=== PATIENT | female | born 1985 | race Caucasian/White ===

== ENCOUNTER 2017-10-27 11:55 | Day surgery (SDC) | payer MEDICAID, SELFPAY ==
--- NOTE | 2017-10-27 | PATH_ITS ---
[facility] Accession Number: [id number] . 01 Material submitted: . PART A: DUODENAL PART B: ANTRAL PART C: GE JUNCTION PART D: ILEUM PART E: RANDOM COLON . 02 Diagnosis: A. Duodenum, Biopsy: Duodenal mucosa with no diagnostic abnormality. Negative for active inflammation, features of sprue, dysplasia or malignancy. . B. Antrum, Biopsies: Gastric antral mucosa with no diagnostic abnormality. No evidence of Helicobacter organisms on H/E stain. Negative for intestinal metaplasia, dysplasia or malignancy. . C. Gastroesophageal Junction, Biopsy: Squamocolumnar junctional mucosa with no diagnostic abnormality. Negative for specialized intestinal metaplasia, dysplasia or malignancy. . D. Ileum, Biopsy: Ileal mucosa with no diagnostic abnormality. Negative for active inflammation, granulomata, dysplasia or malignancy. . E. Random Colon, Biopsies: Colonic mucosa with no diagnostic abnormality. Negative for active of microscopic colitis. Negative for granulomata, dysplasia or malignancy. [facility]/10/28/2017 . 02 Electronically signed: . Kan Hoyos MD, PhD, Pathologist NPI- [id number] . 01 Gross description: . Received are five formalin-filled containers, each labeled with the patient's name: . A. In a container labeled duodenal, the specimen consists of a 0.2 cm portion of tissue, entirely submitted in cassette A. B. In a container labeled antral, the specimen consists of two less than 0.1 cm to 0.2 cm portions of tissue, entirely submitted in cassette B. C. In a container labeled GE junction, the specimen consists of a 0.2 cm portion of tissue, entirely submitted in cassette C. D. In a container labeled ileum, the specimen consists of a 0.2 cm portion of tissue, entirely submitted in cassette D. E. In a container labeled random colon, the specimen consists of multiple less than 0.1 cm to 0.4 cm portions of tissue, which are filtered, wrapped, and entirely submitted in cassette E. ([id number]) /FRR . 02 Pathologist provided ICD-10: R10.13, R19.7 . 02 CPT . 253462, 703836, 563324, 333512, 280097 Performed at: 01 [facility] [address] [id number] MD Eldon Chery MD Phone: [phone] Performed at: 02 [facility] [address] [place], [place] [id number] MD Andrei Sainz MD Phone: [phone]
[2017-10-27 12:23] VITALS: BP 119/81; PULSE 78; RESP 15; TEMP 36; O2SAT 98; BMI 30.4
[2017-10-27] MEDS: SODIUM CHLORIDE 0.9% 1,000 ML 200 ML IV (12:23)
--- NOTE | 2017-10-27 13:44 | PM.PREOP ---
Pre-operative Note Interval Note Pre-op Check: History & Physical Reviewed by Physician ASA Class (for procedural sedation): I
[2017-10-27] MEDS: LIDOCAINE 4% SOLN 50 ML 20 ML TOP (13:55)
[2017-10-27] MEDS: TETRACAINE/BENZOCAINE/BUTAMBEN (CETACAINE) BOTTLE 1 SPRAY TOP (13:56)
--- NOTE | 2017-10-27 14:00 | PM.OP.1 ---
Operative Date/Time/Diagnoses Date of procedure: 10/27/17 Time of procedure: 14:00 Pre-op diagnosis: Abdominal pain Chronic diarrhea Post-op diagnosis: same Procedure & Clinicians Procedure: Esophagogastroduodenoscopy with biopsies and colonoscopy with biopsies Same procedure as scheduled: Yes Indications: Abdominal pain and chronic diarrhea Surgeon: Johanny Whitman Click Yes if Unassisted: Yes Anesthesia Type: Sedation Operative Notes Procedure in detail: After obtaining informed consent, the patient was brought to the GI suite and placed in the left lateral decubitus position on the examination table. After placement of appropriate monitors, the patient was given incremental doses of Versed and Fentanyl until an appropriate level of sedation was achieved. A time out was held per SCOAP protocol. We began with EGD. A bite block was gently placed between the patient's teeth. The endoscope was lubricated and then passed into the patient's posterior oropharynx. The esophagus was cannulated under direct vision and the scope was passed to the second portion of the duodenum without difficulty. The scope was then withdrawn with careful examination of all areas of the upper GI tract and mucosa. In the stomach, the instrument was retroflexed and the GE junction examined. The scope was straightened and the procedure continued with examination of the remainder of the upper GI tract. Findings are noted above. Air was aspirated from the stomach and the endoscope gently removed from the esophagus. The examination table was turned and we continued with the colonoscopy. A digital rectal examination was performed and did not reveal any masses or obstructing lesions. The colonoscope was gently passed into the patient's anus and the entire colon navigated to the level of the cecum with minimal difficulty. Once in the cecum, the scope was withdrawn being sure to go before and beyond all mucosal folds and prominences and get an excellent examination. The findings are noted above. At the level of the rectal vault, the scope was retroflexed and the internal anal canal was examined. The scope was straightened and air aspirated from the colon. The instrument was removed from the patient's body and the procedure was concluded. The patient was allowed to awaken from sedation without difficulty and taken to the post-anesthesia care unit in good condition.
[2017-10-27 14:22] VITALS: BP 122/80; PULSE 67; RESP 16; TEMP 36.2; O2SAT 97
[2017-10-27 14:27] VITALS: BP 108/65; PULSE 65; PULSE 67; RESP 12; O2SAT 95
[2017-10-27] MEDS: MIDAZOLAM 5 MG/5 ML VIAL IV (14:31)
[2017-10-27 14:32] VITALS: BP 100/67; PULSE 61; RESP 12; TEMP 36.6; O2SAT 95
[2017-10-27] MEDS: fentaNYL 250 MCG/5 ML INJ IV (14:32)
[2017-10-27 14:35] VITALS: BP 98/61; PULSE 61; RESP 14; TEMP 36.4; O2SAT 97
[2017-10-27 14:53] VITALS: BP 100/71; PULSE 66; RESP 14; TEMP 36.2; O2SAT 96
[2017-10-27 17:42] LABS: Clostridium Difficile Tox PCR Negative for C. diff
--- NOTE | 2017-10-28 15:26 | PM.OP.1 ---
Operative Date/Time/Diagnoses Date of procedure: 10/27/17 Time of procedure: 14:26 Pre-op diagnosis: Abdominal pain and chronic diarrhea Post-op diagnosis: same Procedure & Clinicians Procedure: EGD with biopsies and Colonoscopy Same procedure as scheduled: Yes Indications: Chronic diarrhea and abdominal pain Surgeon: Johanny Whitman Anesthesia Type: Sedation (Versed 14 mg; Fentanyl 450 mcg) Operative Notes Findings: 1. Mild duodenitis 2. No evidence of gastritis 3. Excellent prep 4. No polyps or mass lesions 5. No AV malformations 6. Normal mucosa throughout the colon 7. Minimal evidence of diverticulosis 8. Grade 1-2 internal hemorrhoids
== END 2017-10-27 14:58 | disposition home or self-care (01) ==
PROVIDERS: PCP Family Medicine; Visit Provider Surgery
PROC: 0DJ08ZZ Inspection of Upper Intestinal Tract, Via Natural or Artificial Opening Endoscopic (ICD-10-PCS; CPT 43235; principal; 2017-10-27 13:00)
PROC: 0DJD8ZZ Inspection of Lower Intestinal Tract, Via Natural or Artificial Opening Endoscopic (ICD-10-PCS; CPT 45378; 2017-10-27 13:00)
DX: R10.9 Unspecified abdominal pain (principal); Z87.891 Personal history of nicotine dependence; F41.9 Anxiety disorder, unspecified; F32.9 Major depressive disorder, single episode, unspecified; F43.11 Post-traumatic stress disorder, acute; K29.80 Duodenitis without bleeding
CPT/HCPCS: 43239; 45380; 87015; 87045; 87177; 87427; 87493; 87899; 88305; J2250; J3010

== ENCOUNTER 2018-01-15 10:14 | Emergency (ER) | payer MEDICAID, SELFPAY ==
[2018-01-15 10:16] VITALS: BP 134/86; PULSE 92; RESP 16; TEMP 36.5; O2SAT 100
[2018-01-15 11:12] LABS: Add Manual Diff / Slide Review NO; Basophils Percent Auto 0.5 % (0-2); Eosinophils Percent Auto 0.1 % (2-4); Hematocrit 40.5 % (36-46); Hemoglobin 13.9 g/dL (12.0-16.0); Lymphocytes Percent Auto 8.2 % (25-40); Mean Corpuscular HGB Conc 34.3 % (30-36); Mean Corpuscular Hemoglobin 28.7 PG (26-34); Mean Corpuscular Volume 83.6 fL (80-100); Monocytes Percent Auto 2.4 % (3-14); Neutrophils Absolute Auto 7000 /uL (3000-5900); Neutrophils Percent Auto 88.8 % (50-75); Platelet Count 229 X10^3/uL (150-400); Red Blood Cell Count 4.84 X10^6/uL (4.0-5.2); Red Cell Distribution Width 13.5 % (11.6-14.8); White Blood Cell Count 7.9 X10^3/uL (4.5-11.0)
[2018-01-15] MEDS: KETOROLAC 60 MG/2 ML VIAL 30 MG IV (11:19)
[2018-01-15] MEDS: ONDANSETRON 4 MG/2 ML INJ IV ×2 (11:19→12:38)
[2018-01-15 11:20] VITALS: PULSE 75; RESP 15; O2SAT 100
[2018-01-15] MEDS: SODIUM CHLORIDE 0.9% 1,000 ML 1000 ML IV (11:20)
[2018-01-15 11:26] LABS: Alanine Aminotransferase 19 IU/L (9-52); Albumin 4.4 g/dL (3.5-5.0); Albumin Globulin Ratio 1.6 (1.0-2.8); Alkaline Phosphatase 66 U/L (38-126); Aspartate Aminotransferase 19 IU/L (14-36); Bilirubin Total 0.9 mg/dL (0.2-1.3); Blood Urea Nitrogen 7 mg/dL (7-17); Calcium 9.1 mg/dL (8.4-10.2); Carbon Dioxide 20 mmol/L (22-32); Chloride 108 mmol/L (98-107); Estimated Glomerular Filt Rate > 60.0 mL/min (>60); Globulin 2.8 g/dL (1.7-4.1); Glucose 139 mg/dL (70-100); HEMOLYSIS < 15 (0-50); Lipase 119 U/L (23-300); Potassium 3.6 mmol/L (3.4-5.1); Sodium 143 mmol/L (137-145); Total Protein 7.2 g/dL (6.3-8.2)
--- NOTE | 2018-01-15 12:16 | ED_ITS ---
HPI - Anxiety <RODGER Drummond - Last Filed: 01/15/18 22:10> General Chief Complaint: Anxiety Stated Complaint: Panic Attack Time Seen by Provider: 01/15/18 10:19 Source: patient Mode of arrival: ambulatory Limitations: no limitations History of Present Illness HPI narrative: 32-year-old female with history of anxiety and panic attacks and is a former smoker here for complaint of having anxiety with epigastric pain and nausea vomiting. She states that this started earlier today. she states she does have a history of having reflux disorder. she feels that she has been under increased stress recently. She states that she thinks the stress is making her abdominal pain worse. She does use marijuana frequently. She denies any suicidal or homicidal ideation. She currently uses Prozac BuSpar and hydroxyzine for her anxiety. No fevers no chills. No abdominal trauma. Last bowel movement was earlier today and was loose. sHe denies any urinary symptoms. No vaginal bleeding or abnormal discharge. Related Data Home Medications Medication Instructions Recorded Confirmed levonorgestrel [Mirena] 52 mg INTRAU QDAY #0 01/15/16 01/14/18 buspirone 30 mg tablet 15 mg PO BID tab 01/14/18 hydroxyzine HCl 25 mg tablet 25 mg PO Q6-8H PRN tab 01/14/18 01/14/18 Previous Rx's Medication Instructions Recorded prochlorperazine maleate 10 mg 10 mg PO Q6H PRN #20 tab 11/10/17 tablet fluoxetine 20 mg capsule 20 mg PO DAILY #30 cap 01/01/18 prazosin 1 mg capsule See Label Instructions PO BID #90 01/05/18 cap esomeprazole magnesium 20 mg PO DAILY #14 cap 01/15/18 lorazepam [Ativan] 1 mg PO BID-TID PRN #10 tab 01/15/18 Allergies Allergy/AdvReac Type Severity Reaction Status Date / Time No Known Drug Allergies Allergy Verified 01/15/18 10:58 Review of Systems <RODGER Drummond - Last Filed: 01/15/18 22:10> Constitutional Denies chills, Denies fever(s), Denies lethargy and Denies weakness Eyes Denies change in vision, Denies eye discharge, Denies irritation and Denies loss of vision ENT Ears, Nose, Mouth, and Throat: Denies change in voice, Denies neck pain and Denies sore throat Cardiovascular Denies chest pain, Denies irregular heart rhythm, Denies lightheadedness, Denies palpitations, Denies dyspnea, Denies dyspnea on exertion and Denies orthopnea Respiratory Denies cough, Denies dyspnea, Denies dyspnea on exertion and Denies wheezing Gastrointestinal Comments: Epigastric pain and nausea Genitourinary Denies hematuria, Denies flank pain, Denies urinary incontinence and Denies urinary urgency Musculoskeletal Denies neck pain Integumentary/Breasts Denies pruritus, Denies erythema, Denies rash and Denies wounds Neurologic Denies loss of vision and Denies weakness Psychiatric Reports anxiety Endocrine Denies palpitations Allergic/Immunologic Denies wheezing Exam <RODGER Drummond - Last Filed: 01/15/18 22:10> Initial Vital Signs Initial Vital Signs: Vital Signs Temperature 97.7 F 01/15/18 10:16 Pulse Rate 92 H 01/15/18 10:16 Respiratory Rate 16 01/15/18 10:16 Blood Pressure 134/86 01/15/18 10:16 Pulse Oximetry 100 01/15/18 10:16 Const General: cooperative and well developed Nutritional Appearance: well nourished Orientation: alert, awake, oriented x3 and not confused HENAK Mouth: oral mucosae normal and moist mucous membranes Eyes General: appearance normal, both eyes and all related structures Eyelids: eyelids normal Conjunctivae: conjunctivae normal Sclera: sclerae normal Pupils: PERRL EOM: EOM intact bilaterally Resp Effort & Inspection: normal respiratory effort, able to speak in complete sentences, no respiratory distress and no use of accessory muscles Auscultation: clear to auscultation bilaterally, no rales, no rhonchi and no wheezes Cardio Rate: regular rate Rhythm: regular rhythm Heart Sounds: no click, no gallops, no murmurs and no rubs GI Inspection: non-distended Palpation: soft, no hepatosplenomegaly, No guarding, No pulsatile mass and tender ( epigastric area) Auscultation: normal bowel sounds General: No CVA tenderness Skin General: no rashes or lesions noted, No jaundice and No petechiae Neuro General: alert, oriented x3, gait normal and no focal motor deficits Speech: speech normal Psych Appearance: well kempt Mental Status: mental status grossly normal Mood: anxious mood Attitude: cooperative Thought Content: normal, no homicidality and suicidality Judgment: judgment good <Valery Cary DO - Last Filed: 01/16/18 08:33> Initial Vital Signs Initial Vital Signs: Vital Signs Temperature 97.7 F 01/15/18 10:16 Pulse Rate 92 H 01/15/18 10:16 Respiratory Rate 16 01/15/18 10:16 Blood Pressure 134/86 01/15/18 10:16 Pulse Oximetry 100 01/15/18 10:16 GENERAL: Actively vomiting slightly diaphoretic HEENT: Head atraumatic,EOMI, pupils reactive, face symmetric CARDIOVASCULAR: Regular rate and rhythm without murmurs, rubs or gallops. RESPIRATORY: Breath sounds equal bilaterally, no wheezes rales or rhonchi. ABDOMEN: Soft, diffusely tender no guarding or rebound : No CVA tenderness EXTREMITIES: Normal range of motion, no clubbing or edema. Neurovascularly intact NEUROLOGICAL: Alert and oriented x4.Normal gait and speech. Cranial nerves II through XII grossly intact. SKIN: Warm, dry, no laceration, no petechiae, no rashes or lesions. Course <RODGER Drummond - Last Filed: 01/15/18 22:10> Orders Ordered: Discontinued Medications Sodium Chloride (Normal Saline 0.9%) 1,000 mls @ 1,000 mls/hr IV CONT EDUARD Last Infusion: 01/15/18 14:00 Dose: 0 mls/hr Admin: 01/15/18 11:20 Dose: 1,000 mls/hr Ketorolac Tromethamine (Toradol) 30 mg IV NOW ONE Stop: 01/15/18 11:12 Last Admin: 01/15/18 11:19 Dose: 30 mg Lorazepam (Ativan) 1 mg IV NOW ONE Stop: 01/15/18 12:15 Last Admin: 01/15/18 12:38 Dose: 1 mg Ondansetron HCl (Zofran) 4 mg IV NOW ONE Stop: 01/15/18 11:12 Last Admin: 01/15/18 11:19 Dose: 4 mg Ondansetron HCl (Zofran) 4 mg IV NOW ONE Stop: 01/15/18 12:36 Last Admin: 01/15/18 12:38 Dose: 4 mg Vital Signs - 8 hr 09/28/18 10:16 01/15/18 11:20 01/15/18 12:37 Temperature 97.7 F Pulse Rate 92 H 75 57 L Respiratory Rate 16 15 Blood Pressure 134/86 Blood Pressure [Left Arm] 131/74 Pulse Oximetry 100 100 100 <Valery Cary DO - Last Filed: 01/16/18 08:33> Orders Ordered: Discontinued Medications Sodium Chloride (Normal Saline 0.9%) 1,000 mls @ 1,000 mls/hr IV CONT EDUARD Last Infusion: 01/15/18 14:00 Dose: 0 mls/hr Admin: 01/15/18 11:20 Dose: 1,000 mls/hr Ketorolac Tromethamine (Toradol) 30 mg IV NOW ONE Stop: 01/15/18 11:12 Last Admin: 01/15/18 11:19 Dose: 30 mg Lorazepam (Ativan) 1 mg IV NOW ONE Stop: 01/15/18 12:15 Last Admin: 01/15/18 12:38 Dose: 1 mg Ondansetron HCl (Zofran) 4 mg IV NOW ONE Stop: 01/15/18 11:12 Last Admin: 01/15/18 11:19 Dose: 4 mg Ondansetron HCl (Zofran) 4 mg IV NOW ONE Stop: 01/15/18 12:36 Last Admin: 01/15/18 12:38 Dose: 4 mg Vital Signs - 8 hr 01/15/18 10:16 01/15/18 11:20 01/15/18 12:37 Temperature 97.7 F Pulse Rate 92 H 75 57 L Respiratory Rate 16 15 Blood Pressure 134/86 Blood Pressure [Left Arm] 131/74 Pulse Oximetry 100 100 100 MDM - Anxiety <RODGER Drummond - Last Filed: 01/15/18 22:10> Lab Data Result diagrams: 01/15/18 11:00 01/15/18 11:00 Lab Results 01/15/18 01/15/18 01/15/18 Range/Units 11:00 11:00 13:20 WBC 7.9 (4.5-11.0) X10^3/uL RBC 4.84 (4.0-5.2) X10^6/uL Hgb 13.9 (12.0-16.0) g/dL Hct 40.5 (36-46) % MCV 83.6 (80-100) fL MCH 28.7 (26-34) PG MCHC 34.3 (30-36) % RDW 13.5 (11.6-14.8) % Plt Count 229 (150-400) X10^3/uL Neut % (Auto) 88.8 H (50-75) % Lymph % (Auto) 8.2 L (25-40) % [place] % (Auto) 2.4 L (3-14) % Eos % (Auto) 0.1 L (2-4) % Baso % (Auto) 0.5 (0-2) % Neut # (Auto) 7000 H (3906-7510) /uL Sodium 143 (137-145) mmol/L Potassium 3.6 (3.4-5.1) mmol/L Chloride 108 H (98-107) mmol/L Carbon Dioxide 20 L (22-32) mmol/L BUN 7 (7-17) mg/dL Creatinine 0.70 (0.52-1.04) mg/dL Estimated GFR > 60.0 (>60) mL/min BUN/Creatinine Ratio 10.0 (6-22) Glucose 139 H (70-100) mg/dL Calcium 9.1 (8.4-10.2) mg/dL Total Bilirubin 0.9 (0.2-1.3) mg/dL AST 19 (14-36) IU/L ALT 19 (9-52) IU/L Alkaline Phosphatase 66 (38-126) U/L Total Protein 7.2 (6.3-8.2) g/dL Albumin 4.4 (3.5-5.0) g/dL Globulin 2.8 (1.7-4.1) g/dL Albumin/Globulin Ratio 1.6 (1.0-2.8) Lipase 119 (23-300) U/L Urine RBC None seen (0-5/HPF) Urine WBC 0-1/hpf (0-5/HPF) Urine Bacteria Few (2-10) H (None) Urine Mucus 2+ H (Negative) Ur Culture Indicated? Cult not indicated Micro UA Comment Not Reportable Point of Care Testing Test Results Negative Urine Dip Bedside Urine Glucose Negative Bedside Urine Bilirubin - Negative Bedside Urine Ketone +++ 80 Urine Specific Bronson 1.015 Bedside Urine Occult Blood - Negative Bedside Urine pH 8.5 Bedside Urine Protein +/- 15 Bedside Urine Urobilinogen +/- 1mg Bedside Urine Nitrite - Negative Bedside Urine Leukocytes - Negative Esterase MDM Narrative Medical decision making narrative: CBC and Chem panel were obtained were unremarkable. Ultrasound of the abdomen was negative for any acute findings. Lipase was negative. She felt better after Ativan and Zofran. signs and symptoms presents as secondary to her anxiety. Small amount of Ativan as prescribed for anxiety and panic attack. She is also prescribed Zofran for nausea. She recently had a endoscopy due to history of having epigastric pain and was unremarkable in November. Possible that her frequent marijuana use may be cause of her nausea vomiting. Will give trial of Nexium to see if it helps her symptoms. follow up with primary care provider in the next few days for re-evaluation. <Valery Cary, - Last Filed: 01/16/18 08:33> Lab Data Attestation: I reviewed the patient's lab results. Lab Results 01/15/18 01/15/18 01/15/18 Range/Units 11:00 11:00 13:20 WBC 7.9 (4.5-11.0) X10^3/uL RBC 4.84 (4.0-5.2) X10^6/uL Hgb 13.9 (12.0-16.0) g/dL Hct 40.5 (36-46) % MCV 83.6 (80-100) fL MCH 28.7 (26-34) PG MCHC 34.3 (30-36) % RDW 13.5 (11.6-14.8) % Plt Count 229 (150-400) X10^3/uL Neut % (Auto) 88.8 H (50-75) % Lymph % (Auto) 8.2 L (25-40) % [place] % (Auto) 2.4 L (3-14) % Eos % (Auto) 0.1 L (2-4) % Baso % (Auto) 0.5 (0-2) % Neut # (Auto) 7000 H (8391-5295) /uL Sodium 143 (137-145) mmol/L Potassium 3.6 (3.4-5.1) mmol/L Chloride 108 H (98-107) mmol/L Carbon Dioxide 20 L (22-32) mmol/L BUN 7 (7-17) mg/dL Creatinine 0.70 (0.52-1.04) mg/dL Estimated GFR > 60.0 (>60) mL/min BUN/Creatinine Ratio 10.0 (6-22) Glucose 139 H (70-100) mg/dL Calcium 9.1 (8.4-10.2) mg/dL Total Bilirubin 0.9 (0.2-1.3) mg/dL AST 19 (14-36) IU/L ALT 19 (9-52) IU/L Alkaline Phosphatase 66 (38-126) U/L Total Protein 7.2 (6.3-8.2) g/dL Albumin 4.4 (3.5-5.0) g/dL Globulin 2.8 (1.7-4.1) g/dL Albumin/Globulin Ratio 1.6 (1.0-2.8) Lipase 119 (23-300) U/L Urine RBC None seen (0-5/HPF) Urine WBC 0-1/hpf (0-5/HPF) Urine Bacteria Few (2-10) H (None) Urine Mucus 2+ H (Negative) Ur Culture Indicated? Cult not indicated Micro UA Comment Not Reportable Point of Care Testing Test Results Negative Urine Dip Bedside Urine Glucose Negative Bedside Urine Bilirubin - Negative Bedside Urine Ketone +++ 80 Urine Specific Bronson 1.015 Bedside Urine Occult Blood - Negative Bedside Urine pH 8.5 Bedside Urine Protein +/- 15 Bedside Urine Urobilinogen +/- 1mg Bedside Urine Nitrite - Negative Bedside Urine Leukocytes - Negative Esterase Imaging Data US - abdomen: Radiologist's impression: PROCEDURE: US ABDOMEN COMPLETE INDICATIONS: EPIGASTRIC PAIN TECHNIQUE: Real-time scanning was performed of the abdominal and retroperitoneal organs, with image documentation. COMPARISON: [facility], US, ABDOMEN COMPLETE, 08/13/2017, 12:23. FINDINGS: Liver: Liver is normal in size and homogeneous in echotexture. Gallbladder: No findings of gallstones or sludge are seen. The gallbladder wall is not thickened, measuring 3 mm or less. No specific pericholecystic fluid is seen. The sonographic Kincaid sign is negative. Biliary ducts: Intrahepatic bile ducts are non-dilated. Extrahepatic bile duct caliber measures 4-5 mm. Normal is 6-7 mm or less in diameter, or 10 mm or less post-cholecystectomy. Pancreas: Visualized portions of the pancreas are sonographically normal. Spleen: Spleen is normal in size and homogeneous in echotexture. Kidneys: Kidneys are normal in size and echotexture. Right kidney measures 10.3 cm long; left kidney measures 10.3 cm long. No hydronephrosis or nephrolithiasis. No solid masses. Aorta: Visualized aorta is normal in caliber at less than 3 cm. Iliacs: Proximal common iliac arteries are normal in caliber at less than 2.5 cm. IVC: Intrahepatic inferior vena cava is patent. Miscellaneous: No free abdominal fluid. IMPRESSION: The gallbladder demonstrates a normal sonographic appearance. No biliary dilatation is seen. Dictated by: Aden Steen M.D. on 01/15/2018 at 11:55 Discharge Plan Departure Patient Disposition: Home Clinical Impression: Anxiety Discharge Date/Time: 01/15/18 13:59 Interventions: ED Discharge Assessment Last Done: 01/15/18 13:58 Instructions: DI for Anxiety -- Adult Activity Restrictions/Additional Instructions: laboratory results and ultrasound were unremarkable today. Signs and symptoms presents as being secondary due to her anxiety. UR prescribed Ativan to help with anxiety / panic attacks use as directed no driving while on the Ativan. Nexium is prescribed to see if it helps with your Stomach pain use as directed. Follow up with primary care provider in the next few days for re- evaluation. Try relaxation techniques to see if it helps with her symptoms. Be aware that frequent marijuana use can cause nausea and vomiting symptoms Prescriptions: New lorazepam [Ativan] 1 mg tablet 1 mg PO BID-TID PRN (Reason: anxiety) Qty: 10 RF: 0 esomeprazole magnesium 20 mg capsule,delayed release(DR/EC) 20 mg PO DAILY Qty: 14 RF: 0 No Action levonorgestrel [Mirena] 1 EACH intrauterine device 52 mg INTRAU QDAY Qty: 0 RF: 0 prochlorperazine maleate [Compazine] 10 mg tablet 10 mg PO Q6H PRN (Reason: nausea and vomiting) Qty: 20 RF: 0 prazosin 1 mg capsule See Label Instructions PO BID Qty: 90 RF: 5 fluoxetine [Prozac] 20 mg capsule 20 mg PO DAILY Qty: 30 RF: 3 buspirone 30 mg tablet 15 mg PO BID RF: 0 hydroxyzine HCl 25 mg tablet 25 mg PO Q6-8H PRNRF: 0 Referrals: Haile Rosales MD [Primary Care Provider] - <Valery Cary DO - Last Filed: 01/16/18 08:33> Cosign ED Attending Rolf Attestation: I was immediately available in the department for consultation. Documentation has been reviewed. I agree with assessment and plan.
[2018-01-15 12:37] VITALS: BP 131/74; PULSE 57; O2SAT 100
[2018-01-15] MEDS: LORazepam 2 MG/ML SYRINGE 1 MG IV (12:38)
[2018-01-15 13:26] LABS: RBC Urine None Seen (0-5/HPF)
[2018-01-15 13:34] LABS: Bacteria Urine Few (2-10); Culture Indicated Urine Cult Not Indicated; Mucus Urine 2+ (Negative); WBC Urine 0-1/HPF (0-5/HPF)
[2018-01-15 13:57] VITALS: BP 128/79; PULSE 62; RESP 16; O2SAT 100
[2018-01-15 13:58] VITALS: BP 128/79; PULSE 62; RESP 16; O2SAT 100
--- NOTE | 2018-01-15 14:00 | PC.NURSE ---
Patient's fluids infusing at slow rate due to continual movement of hand and positional state of iv. iv was readjusted several times and I attempted to use a pump as well. At time of DC patient had only receiving 200cc of fluid. Luis Daniel aware, ok to DC. Patient drinking PO fluids.
== END 2018-01-15 13:59 | disposition home or self-care (01) ==
PROVIDERS: Emergency Medicine; Emergency Provider Nurse Practitioner Family; PCP Family Medicine
DX: F41.9 Anxiety disorder, unspecified (principal); R10.9 Unspecified abdominal pain
CPT/HCPCS: 36591; 76700; 80053; 81003; 81015; 81025; 83690; 85025; 96361; 96374; 96375; 96376; 99283; 99284; J1885; J2060; J2405

== ENCOUNTER → 2020-07-20 10:42 | Outpatient (CLI) | payer MEDICAID, SELFPAY ==
--- NOTE | 2020-07-20 10:43 | DI.US.S_ITS ---
PROCEDURE: US OB <= 14 WEEKS FETUS INDICATIONS: DATING AND VIABILITY OUTSIDE/PRIOR DATING DATA: First dating scan (date and location): 07/20/2020. Estimated date of delivery (KARYN) from first dating scan: 03/19/2021 by gestational sac size. TECHNIQUE: Real-time scanning was performed of the fetus and maternal pelvic organs, with image documentation. Endovaginal scanning was also performed to better visualize the fetus and maternal ovaries. COMPARISON: None. FINDINGS: Embryo: Intrauterine gestational sac with mean sac diameter 7 mm corresponding to 5 weeks 3 days. Yolk sacs identified. No pole at this time. Small perigestational sac bleed site measuring up to 6 mm. Measurement variability in dating: +/- 4 weeks by LMP, +/- 7 days by mean sac diameter (use before 6 weeks gestation if crown-rump length not able to be measured), +/- 5 days by crown-rump length (up to 8 weeks 6 days gestation), +/- 7 days by crown-rump length (up to 13 weeks 6 days gestation). Maternal organs: Ovaries within normal limits, with left corpus luteal cyst measuring 2.3 cm. IMPRESSION: Intrauterine gestational sac with mean diameter of 7 mm corresponding to 5 weeks 3 days and no pole is visible at this time. Recommend short-term follow-up pelvic ultrasound in 1 week to assess viability. Dictated by: Zechariah Bee [facility] Interpreted: Liat Santamaria MD on 07/20/2020 at 12:21 Approved by: Liat Santamaria MD, PhD on 07/20/2020 at 14:56
== END ==
PROVIDERS: PCP Family Medicine; Referring Provider Family Medicine; Visit Provider Family Medicine
DX: Z34.91 Encounter for supervision of normal pregnancy, unspecified, first trimester (principal); Z3A.01 Less than 8 weeks gestation of pregnancy
CPT/HCPCS: 76801; 76817

== ENCOUNTER → 2020-07-23 11:02 | Outpatient (CLI) | payer MEDICAID, SELFPAY ==
[2020-07-23 12:22] LABS: HCG Quantitative /Beta subunit 11917 mIU/mL
== END ==
PROVIDERS: PCP Family Medicine; Referring Provider Family Medicine; Visit Provider Family Medicine
DX: O20.9 Hemorrhage in early pregnancy, unspecified (principal)
CPT/HCPCS: 36415; 84702

== ENCOUNTER → 2020-07-25 11:36 | Outpatient (CLI) | payer MEDICAID, OTHER, SELFPAY ==
[2020-07-25 14:49] LABS: HCG Quantitative /Beta subunit 18637 mIU/mL
== END ==
PROVIDERS: PCP Family Medicine; Referring Provider Family Medicine; Visit Provider Family Medicine
DX: O20.9 Hemorrhage in early pregnancy, unspecified (principal)
CPT/HCPCS: 36415; 84702

== ENCOUNTER → 2020-07-27 10:41 | Outpatient (CLI) | payer MEDICAID, OTHER, SELFPAY ==
--- NOTE | 2020-07-27 10:43 | DI.US.S_ITS ---
PROCEDURE: US OB TRANSVAGINAL INDICATIONS: Repeat US for Viability on 07/27/20 please OUTSIDE/PRIOR DATING DATA: Last menstrual period (LMP): Unknown. LMP-based estimated date of delivery (KARYN): Not applicable . First dating scan (date and location): July 20, 2020 . Estimated date of delivery (KARYN) from first dating scan: March 19, 2021 . TECHNIQUE: Real-time scanning was performed of the fetus, with image documentation. Endovaginal scanning: Endovaginal scanning was performed COMPARISON: [facility], OB <= 14 WEEKS FETUS, 07/20/2020, 10:56. FINDINGS: A single living intrauterine gestation is present. Estimated gestational age is approximately 6 weeks and 2 days based off crown-rump length measurement of approximately 0.6 cm. A yolk sac is visualized. heart rate measured 121 beats per minute. No perigestational hemorrhage visualized. Maternal organs: There is a left ovarian corpus luteal cyst measuring 2.5 cm in size. Right ovary is unremarkable. Maternal cervical length measures 4.5 cm. It appears long and closed. IMPRESSION: 1. Single living intrauterine gestation with estimated sonographic gestational age of approximately 6 weeks and 2 days based off crown-rump length measurement. Estimated date of delivery is approximately March 19, 2021. Expected interval growth has occurred. 2. Recommend continued clinical surveillance and follow-up routine second-trimester anatomic screening survey. Dictated by: Aj Milton M.D. on 07/31/2020 at 14:38 Approved by: Aj Milton M.D. on 07/31/2020 at 14:42
== END ==
PROVIDERS: PCP Family Medicine; Referring Provider Family Medicine; Visit Provider Family Medicine
DX: O20.9 Hemorrhage in early pregnancy, unspecified (principal); Z3A.01 Less than 8 weeks gestation of pregnancy
CPT/HCPCS: 76817

== ENCOUNTER → 2020-08-27 09:45 | Outpatient (CLI) | payer MEDICAID, OTHER, SELFPAY ==
[2020-08-27 10:35] LABS: Add Manual Diff / Slide Review NO; Basophils Absolute Auto 0 /uL (0-100); Basophils Percent Auto 0.4 % (0-2); Eosinophils Absolute Auto 0 /uL (0-450); Eosinophils Percent Auto 0.7 % (2-4); Hematocrit 40.4 % (36-46); Hemoglobin 13.4 g/dL (12.0-16.0); Lymphocytes Absolute Auto 1300 /uL (1100-4500); Lymphocytes Percent Auto 18.6 % (25-40); Mean Corpuscular HGB Conc 33.2 % (30-36); Mean Corpuscular Hemoglobin 27.6 PG (26-34); Mean Corpuscular Volume 83.2 fL (80-100); Monocytes Absolute Auto 300 /uL (0-900); Monocytes Percent Auto 4.9 % (3-14); Neutrophils Absolute Auto 5100 /uL (1500-7000); Neutrophils Percent Auto 75.4 % (50-75); Platelet Count 213 X10^3/uL (150-400); Red Blood Cell Count 4.86 X10^6/uL (4.0-5.2); Red Cell Distribution Width 13.9 % (11.6-14.8); White Blood Cell Count 6.8 X10^3/uL (4.5-11.0)
[2020-08-27 16:23] LABS: Hepatitis B Surface Antigen NEGATIVE s/c (NEGATIVE); Rubella Antibody IgG 15.7 IU/mL (>15)
[2020-08-27 17:33] LABS: HIV 1 & 2 Ab/Ag 4th Gen Combo NEGATIVE (NEGATIVE); Hep C Virus Ab w/Reflex Quant NEGATIVE s/c (NEGATIVE)
[2020-08-28 12:53] LABS: RPR Screen Non Reactive (Non Reactive); Varicella IgG Antibody 922 index (Immune >165)
== END ==
PROVIDERS: PCP Family Medicine; Referring Provider Family Medicine; Visit Provider Family Medicine
DX: Z34.81 Encounter for supervision of other normal pregnancy, first trimester (principal)
CPT/HCPCS: 36415; 80055; 86787; 86803; 86850; 86900; 86901; 87389

== ENCOUNTER → 2020-09-06 12:51 | Outpatient (CLI) | payer MEDICAID, OTHER, SELFPAY ==
--- NOTE | 2020-09-06 12:52 | DI.US.S_ITS ---
PROCEDURE: US OB <= 14 WEEKS FETUS INDICATIONS: VAGINAL BLEEDING SPOTTING OUTSIDE/PRIOR DATING DATA: Last menstrual period (LMP): Unknown. LMP-based estimated date of delivery (KARYN): Unknown. First dating scan (date and location): 07/20/20. Estimated date of delivery (KARYN) from first dating scan: 03/19/21. TECHNIQUE: Real-time scanning was performed of the fetus and maternal pelvic organs, with image documentation. Endovaginal scanning was also performed to better visualize the fetus and maternal ovaries. COMPARISON: [facility], OB TRANSVAGINAL, 07/27/2020, 9:58. [facility], OB <= 14 WEEKS FETUS, 07/20/2020, 10:56. FINDINGS: Embryo: Single living intrauterine fetus is present with a crown-rump length measuring 5.5 cm, 12 weeks 1 day. Small perigestational hemorrhage measuring 1.0 x 0.5 x 0.8 cm heart rate measures 145 beats per minute. Cervical length measures 4.8 cm. Measurement variability in dating: +/- 4 weeks by LMP, +/- 7 days by mean sac diameter (use before 6 weeks gestation if crown-rump length not able to be measured), +/- 5 days by crown-rump length (up to 8 weeks 6 days gestation), +/- 7 days by crown-rump length (up to 13 weeks 6 days gestation). Maternal organs: There is a left ovarian cyst/corpus luteum measuring 2.2 x 1.8 x 1.5 cm. IMPRESSION: Single living intrauterine fetus with a gestational age of 12 weeks and 1 day by today's ultrasound measurements. Small perigestational hemorrhage as above. Placenta previa. Recommend follow-up on subsequent ultrasounds. Dictated by: Jose Tesfaye M.D. on 09/06/2020 at 17:33 Approved by: Jose Tesfaye M.D. on 09/06/2020 at 17:38
== END ==
PROVIDERS: PCP Family Medicine; Referring Provider Family Medicine; Visit Provider Family Medicine
DX: O44.11 Complete placenta previa with hemorrhage, first trimester (principal); O34.81 Maternal care for other abnormalities of pelvic organs, first trimester; N83.12 Corpus luteum cyst of left ovary; Z3A.12 12 weeks gestation of pregnancy
CPT/HCPCS: 76801

== ENCOUNTER → 2020-10-02 09:43 | Outpatient (CLI) | payer MEDICAID, OTHER, SELFPAY ==
--- NOTE | 2020-10-02 09:44 | DI.US.S_ITS ---
PROCEDURE: US OB FOLLOW UP INDICATIONS: F/U mild santiago gestational hemorrhage OUTSIDE/PRIOR DATING DATA: Last menstrual period (LMP): Not available. LMP-based estimated date of delivery (KARYN): Not available. First dating scan (date and location): Reported 07/20/20 Estimated date of delivery (KARYN) from first dating scan: Reported 03/19/21. TECHNIQUE: Real-time scanning was performed of the fetus, with image documentation. Endovaginal scanning: Performed COMPARISON: None. FINDINGS: Limited study at clinician request. Evaluation for perigestational hemorrhage is requested. A thin membrane of the inferior placental margin covers the internal os of the cervical canal. No hematoma identified. No sign of abruption. Anterior placenta.: IMPRESSION: No hematoma found. The exact anatomy at the inferior placental margin is somewhat uncertain due to early gestational age and follow-up anatomic scan and assessment for placenta previa is recommended at 20 weeks gestation. Currently there appears to be a thin placental membrane covering the internal os of the cervical canal. Follow-up therefore is definitely recommended. Dictated by: John Price M.D. on 10/03/2020 at 15:12 Approved by: John Price M.D. on 10/03/2020 at 15:16
== END ==
PROVIDERS: PCP Family Medicine; Referring Provider Family Medicine; Visit Provider Family Medicine
DX: O20.9 Hemorrhage in early pregnancy, unspecified (principal)
CPT/HCPCS: 76816; 76817

== ENCOUNTER → 2020-10-29 10:52 | Outpatient (CLI) | payer MEDICAID, OTHER, SELFPAY ==
--- NOTE | 2020-10-29 10:53 | DI.US.S_ITS ---
PROCEDURE: OB >= 14 WEEKS FETUS INDICATIONS: ANATOMIC SURVEY OUTSIDE/PRIOR DATING DATA: Last menstrual period (LMP): Not known. LMP-based estimated date of delivery (KARYN): Not applicable. First dating scan (date and location): July 20, 2020. Estimated date of delivery (KARYN) from first dating scan: March 19, 2021. TECHNIQUE: Real-time scanning was performed of the fetus, with image documentation and biometric measurements. Endovaginal scanning: Performed COMPARISON: [facility] OB FOLLOW UP, 10/02/2020, 9:07. [facility] OB <= 14 WEEKS FETUS, 09/06/2020, 12:04. [facility] OB TRANSVAGINAL, 07/27/2020, 9:58. [facility] OB <= 14 WEEKS FETUS, 07/20/2020, 10:56. FINDINGS: General: A single living intrauterine gestation is present. Presentation: Vertex Placenta: Placental appears to cover the internal cervical os with a venous Dia at the inferior edge. Amniotic fluid index: 15.2 cm, normal range is 5-24 cm. heart rate: 149 beats per minute. Maternal cervical canal: Closed and 5.4 cm long. Normal lower limit is 2.5 cm. biometrics: Biparietal diameter: 20 weeks 0 days Head circumference: 19 weeks 1 day Abdominal circumference: 19 weeks 6 days Femur length: 19 weeks 6 days Estimated gestational age from initial scan: 19 weeks 6 days Composite gestational age from present scan: 19 weeks 5 days Estimated weight and percentile: 313 grams; 41st percentile. Measurement variability for biometric dating: +/- 7 days from 14 weeks to 15 weeks 6 days gestation, +/- 10 days from 16 weeks to 21 weeks 6 days gestation, +/- 2 weeks from 22 weeks to 27 weeks 6 days gestation, +/- 3 weeks for 28 weeks gestation or later. weight reference: 4500 g or EFW >90/95% is considered macrosomia or large for gestational age. EFW <10% is small for gestational age. EFW 5% or less is considered intra-uterine growth restriction. Anatomic survey: Neuro: Ventricles are non-dilated at less than 10 mm. Cisterna magna is normal at 3-11 mm. Cerebellum is normal in size and morphology. Nuchal skin fold: Normal at less than 6 mm between 14-21 weeks gestational age. Face: Nose and lips, facial profile are normal. Spine: No evidence for spina bifida. Heart: 4-chambered heart is present, with normal ventricular outflow tracts. Diaphragm: Diaphragm is intact. Stomach: Left-sided stomach is present. Kidneys: No hydronephrosis. Normal is less than 5 mm in 2nd trimester, less than 7 mm in 3rd trimester. Cord: 3-vessel cord has orthotopic insertion. Bladder: Normal in size. Extremities: All 4 extremities identified. IMPRESSION: 1. Single living intrauterine with appropriate interval growth. 2. Normal anatomic survey. 3. Inferior margin of the placenta appears to cover the internal cervical os concerning for complete placenta previa versus low-lying placenta with contraction. Dictated by: Liat Santamaria MD, PhD on 10/29/2020 at 14:28 Approved by: Liat Santamaria MD, PhD on 10/29/2020 at 14:39
== END ==
PROVIDERS: PCP Family Medicine; Referring Provider Family Medicine; Visit Provider Family Medicine
DX: Z34.82 Encounter for supervision of other normal pregnancy, second trimester (principal); Z3A.19 19 weeks gestation of pregnancy
CPT/HCPCS: 76811; 76817

== ENCOUNTER → 2020-10-30 15:18 | Outpatient (CLI) | payer MEDICAID, OTHER, SELFPAY ==
[2020-10-30 21:33] LABS: Urine N gonorrhoeae NOT DETECTED
[2020-10-30 21:35] LABS: Urine Chlamydia NOT DETECTED
== END ==
PROVIDERS: PCP Family Medicine; Visit Provider Family Medicine
DX: Z34.81 Encounter for supervision of other normal pregnancy, first trimester (principal); Z11.3 Encounter for screening for infections with a predominantly sexual mode of transmission; Z11.8 Encounter for screening for other infectious and parasitic diseases
CPT/HCPCS: 87086; 87491; 87591

== ENCOUNTER → 2020-12-11 10:40 | Outpatient (CLI) | payer MEDICAID, OTHER, SELFPAY ==
[2020-12-11 13:05] LABS: Hematocrit 37.4 % (36-46); Hemoglobin 12.1 g/dL (12.0-16.0)
[2020-12-11 13:18] LABS: GTT (PREG) 1 Hour PP 50gm Dose 101 mg/dL (76-139)
== END ==
PROVIDERS: PCP Family Medicine; Referring Provider Family Medicine; Visit Provider Family Medicine
DX: Z34.82 Encounter for supervision of other normal pregnancy, second trimester (principal); Z3A.24 24 weeks gestation of pregnancy
CPT/HCPCS: 36415; 82950; 85014; 85018

== ENCOUNTER → 2020-12-11 10:55 | Outpatient (CLI) | payer MEDICAID, OTHER, SELFPAY ==
--- NOTE | 2020-12-11 10:57 | DI.US.S_ITS ---
PROCEDURE: US OB LIMITED INDICATIONS: FOLLOW UP PLACENTA PREVIA OUTSIDE/PRIOR DATING DATA: Last menstrual period (LMP): Unknown . LMP-based estimated date of delivery (KARYN): Not applicable . First dating scan (date and location): 07/20/2020 . Estimated date of delivery (KARYN) from first dating scan: 03/19/2021 . TECHNIQUE: Real-time scanning was performed of the fetus, with image documentation. Endovaginal scanning: Yes COMPARISON: [facility], , OB LTD ROXANNA/POSITION, 11/03/2009, 18:06. FINDINGS: A single living intrauterine gestation is present. Presentation: Cephalic. Placenta: Placental position is anterior , without previa. Amniotic fluid index: 18 cm, normal range is 5-24 cm. heart rate: 139 beats per minute. Maternal cervical canal: 4 cm long. Normal lower limit is 2.5 cm. Estimated gestational age from initial scan: 26 weeks 0 . IMPRESSION: 1. Resolution of placenta previa. 2. Single living intrauterine gestation. Dictated by: Regis Barreto M.D. on 12/11/2020 at 13:32 Approved by: Regis Barreto M.D. on 12/11/2020 at 13:36
== END ==
PROVIDERS: PCP Family Medicine; Referring Provider Family Medicine; Visit Provider Family Medicine
DX: Z34.82 Encounter for supervision of other normal pregnancy, second trimester (principal); Z3A.26 26 weeks gestation of pregnancy; Z3A.24 24 weeks gestation of pregnancy
CPT/HCPCS: 36415; 76815; 76817; 82950; 85014; 85018

== ENCOUNTER → 2021-02-25 10:11 | Outpatient (CLI) | payer MEDICAID, OTHER, SELFPAY ==
[2021-02-26 12:41] LABS: Strep Grp B PCR POS for Grp B Strep
== END ==
PROVIDERS: PCP Family Medicine; Visit Provider Family Medicine
DX: Z34.03 Encounter for supervision of normal first pregnancy, third trimester (principal); Z3A.38 38 weeks gestation of pregnancy
CPT/HCPCS: 87653

== ENCOUNTER 2021-03-19 06:57 | Inpatient (IN) | payer MEDICAID, OTHER, SELFPAY ==
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
[2021-03-19 08:03] LABS: Add Manual Diff / Slide Review NO; Basophils Absolute Auto 100 /uL (0-100); Basophils Percent Auto 0.8 % (0-2); Eosinophils Absolute Auto 100 /uL (0-450); Eosinophils Percent Auto 0.8 % (2-4); Hematocrit 33.2 % (36-46); Hemoglobin 10.7 g/dL (12.0-16.0); Lymphocytes Absolute Auto 1900 /uL (1100-4500); Mean Corpuscular HGB Conc 32.2 % (30-36); Mean Corpuscular Volume 74.6 fL (80-100); Monocytes Absolute Auto 400 /uL (0-900); Monocytes Percent Auto 4.7 % (3-14); Neutrophils Absolute Auto 6900 /uL (1500-7000); Neutrophils Percent Auto 73.7 % (50-75); Platelet Count 292 X10^3/uL (150-400); Red Blood Cell Count 4.46 X10^6/uL (4.0-5.2); White Blood Cell Count 9.4 X10^3/uL (4.5-11.0)
[2021-03-19] MEDS: PENICILLIN G POTASSIUM 5,000,000 UNIT in DEXTROSE 5% IN WATER 250 ML IV (08:07)
[2021-03-19] MEDS: LACTATED RINGERS 1,000 ML 100 ML IV ×2 (08:07→13:43)
[2021-03-19] MEDS: OXYTOCIN PREMIX 30 UNIT/500 ML PLAST..BAG IV (08:07)
[2021-03-19 08:17] LABS: COVID19 -Nasal RAPID Negative (Negative)
[2021-03-19 09:48] VITALS: BP 116/80
[2021-03-19] MEDS: FENT 2MCG/ML BUPIV 0.125% EPI 200 MCG/100 ML PLAST..BAG 8 MCG EPIDURAL (10:55)
[2021-03-19] MEDS: PENICILLIN G POTASSIUM 3,000,000 UNIT/50 ML FROZ.PIGGY 100 UNIT IV ×2 (12:05→17:08)
--- NOTE | 2021-03-19 12:40 | PM.OBPNLAB ---
Date/Time Date Patient Seen: 03/19/21 Time Patient Seen: 12:40 Pain Control Pain control: tolerating well and epidural Pelvic Exam Dilation (cm): 4 Effacement (%): 80 station: -2 Amniotic membrane status: Ruptured Comments: Yellow tinged amniotic fluid no odor. Contractions Contractions on admission: regular Monitor mode: External Pitocin rate (mU/min): 12 Contraction frequency (min): 3 Contraction duration (min): 1 Contraction pattern: Regular Contraction intensity: Moderate Status status: Category l Heart Rate Baseline: 135 Monitor Accelerations: Present Monitor Decelerations: Absent Monitor Variability: Moderate Assessment and Plan Assessment: active labor and induction ongoing Plan: continuous present management Comments: Patient doing well currently. Epidural in place. 4 cm 80% -2 station. Amniotomy yellow tinged amniotic fluid no odor. Category 1 tracing. 18 units of Pitocin just increased. Two courses of penicillin G given per protocol.
--- NOTE | 2021-03-19 14:59 | PM.OBPNLAB ---
Date/Time Date Patient Seen: 03/19/21 Time Patient Seen: 14:59 Pain Control Pain control: tolerating well and epidural Pelvic Exam Dilation (cm): 6 Effacement (%): 90 station: -1 Amniotic membrane status: Ruptured Contractions Monitor mode: External Pitocin rate (mU/min): 21 Contraction frequency (min): 3 Contraction duration (min): 60 Contraction pattern: Regular Contraction intensity: Strong/Firm Status status: Category l Heart Rate Baseline: 140 Monitor Accelerations: Present Monitor Decelerations: Early and Episodic Monitor Variability: Moderate Assessment and Plan Assessment: active labor and induction ongoing Plan: continuous present management Comments: Patient doing well. Has made good cervical change. Feeling some mild contractions. Epidural working well. Rotating from side to side blood pressure stable. Using Rabia and external heart monitor. Contractions are not picking up well in Rabia switch to toco. Category 1 tracing. Vital signs are stable. Pain well controlled. Continue present management.
--- NOTE | 2021-03-19 17:06 | PM.OBPNLAB ---
Date/Time Date Patient Seen: 03/19/21 Time Patient Seen: 17:06 Pain Control Pain control: tolerating well and epidural Comments: Rebolused of epidural Pelvic Exam Dilation (cm): 10 Effacement (%): 100 station: +1 Amniotic membrane status: Ruptured Contractions Monitor mode: External Pitocin rate (mU/min): 18 Contraction frequency (min): 3 Contraction duration (min): 1 Contraction pattern: Regular Contraction intensity: Strong/Firm Status status: Category ll Heart Rate Baseline: 135 Monitor Accelerations: Present Monitor Decelerations: Early and Episodic Monitor Variability: Moderate Assessment and Plan Assessment: active labor Plan: continuous present management Comments: Patient complete. Began pushing. Recent rib bolus of epidural. Change Rabia monitor to external monitor.
--- NOTE | 2021-03-19 17:57 | PM.OBPRVD ---
Events: Labor Induction and Labor Augmentation Labor & Delivery Delivery date: 03/19/21 Intrapartal Events: None Cervical ripening method: none Induction method: per pitocin protocol Delivery augmentation: rupture of membranes Delivery monitor: external FHT Route of delivery: L&D Laceration Description: Perineal - 2nd Degree Delivery repair: chromic Estimated blood loss (mL): 300 Anesthesia Type: Epidural Narrative: Stage I of labor approximately 10 hours. Patient presented to Labor and delivery floor for 41 week gestational age complicated by placental hemorrhage early in the and placenta previa GBS positive status. Patient had initial evaluation at 7:00 a.m. in the morning had an IV done COVID swab negative. GBS positive once IVs placed Pitocin was started as well as penicillin for GBS status. She had a repeat penicillin approximately 4 hours after the 1st dose. She increased her dose and per protocol. She had amniotomy approximately 5 hours after the 1st and 2nd dose of antibiotics. She had rupture of membranes with yellow stained fluid. During stage I of labor she had category 1 tracing she had normal blood pressures throughout. Total Pitocin was up to 21 units but then taper down to 18 units she had good relief with an epidural. Patient during stage I tolerated labor process well and heart tones were reassuring. Stage II of labor. Approximately 20 minutes delivery of viable female occiput posterior. Delivery of head baby had a nuchal cord which was loose which was easily reduced. Then baby was delivered baby had and the time of presentation of the head which did not interfere with the normal vaginal delivery. After delivery of the baby baby was placed on mother's abdomen. During the pushing process category 1 category 2 heart tracing. Baby made good rapid sent down through the canal. After the delivery of the baby there was delayed cord clamping done. Baby had good less T cry. Stage III of labor approximately 15 minutes. Delivery of intact placenta with three-vessel cord. Mom head the the Pitocin bag day given 20 units through her IV. Sick she had good fundal massage. Estimated blood loss was 300 cc. She had repair of a midline perineal tear 2nd degree with a 2 0 chromic suture in normal fashion.
[2021-03-19 20:28] VITALS: TEMP 35.8
[2021-03-19] MEDS: IBUPROFEN 600 MG TABLET PO (20:28)
[2021-03-19 23:39] VITALS: TEMP 36.3
[2021-03-19] MEDS: ACETAMINOPHEN 325 MG TABLET 650 MG PO (23:39)
[2021-03-20 02:43] VITALS: TEMP 36.8
[2021-03-20] MEDS: IBUPROFEN 600 MG TABLET PO ×2 (02:43→08:53)
[2021-03-20 05:31] VITALS: TEMP 36.8
[2021-03-20] MEDS: ACETAMINOPHEN 325 MG TABLET 650 MG PO ×2 (05:31→12:30)
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
[2021-03-20 11:23] LABS: Hemoglobin 10.8 g/dL (12.0-16.0)
[2021-03-20] MEDS: ONDANSETRON 4 MG ODT SL (12:30)
[2021-03-20 13:03] VITALS: TEMP 36.5
[2021-03-20] MEDS: OXYCODONE/ACETAMINOPHEN 5/325 TABLET 2 TAB PO (13:03)
[2021-03-20] MEDS: DOCUSATE 100 MG CAPSULE 200 MG PO (13:04)
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
[2021-03-20] MEDS: LACTATED RINGERS 1,000 ML 1000 ML IV (17:07)
[2021-03-20] MEDS: ONDANSETRON 4 MG/2 ML INJ IV ×2 (17:16→19:50)
[2021-03-20 17:33] LABS: Add Manual Diff / Slide Review NO; Basophils Absolute Auto 100 /uL (0-100); Basophils Percent Auto 0.4 % (0-2); Eosinophils Absolute Auto 0 /uL (0-450); Eosinophils Percent Auto 0.3 % (2-4); Hematocrit 33.2 % (36-46); Hemoglobin 10.8 g/dL (12.0-16.0); Lymphocytes Absolute Auto 1200 /uL (1100-4500); Lymphocytes Percent Auto 10.4 % (25-40); Mean Corpuscular HGB Conc 32.6 % (30-36); Mean Corpuscular Hemoglobin 24.5 PG (26-34); Mean Corpuscular Volume 75.1 fL (80-100); Monocytes Absolute Auto 400 /uL (0-900); Monocytes Percent Auto 3.2 % (3-14); Neutrophils Absolute Auto 10200 /uL (1500-7000); Neutrophils Percent Auto 85.7 % (50-75); Platelet Count 286 X10^3/uL (150-400); Red Blood Cell Count 4.41 X10^6/uL (4.0-5.2); Red Cell Distribution Width 15.8 % (11.6-14.8); White Blood Cell Count 11.9 X10^3/uL (4.5-11.0)
[2021-03-20 17:59] LABS: Alanine Aminotransferase 17 IU/L (<35); Albumin 3.8 g/dL (3.5-5.0); Albumin Globulin Ratio 1.2 (1.0-2.8); Alkaline Phosphatase 112 U/L (38-126); Aspartate Aminotransferase 41 IU/L (14-36); Bilirubin Total 0.4 mg/dL (0.2-1.3); Bilirubin Unconjugated 0.3 mg/dL (0.0-1.1); Globulin 3.3 g/dL (1.7-4.1); HEMOLYSIS < 15 (0-50); Total Protein 7.1 g/dL (6.3-8.2); Uric Acid 4.1 mg/dL (2.5-6.2)
[2021-03-20] MEDS: METOCLOPRAMIDE 10 MG/2 ML INJ IV (18:49)
[2021-03-20] MEDS: LACTATED RINGERS 1,000 ML 125 ML IV (18:49)
[2021-03-20] MEDS: PANTOPRAZOLE 40 MG VIAL IV (18:50)
[2021-03-20 23:30] VITALS: TEMP 36.3
[2021-03-20] MEDS: MORPHINE 2 MG/ML INJ 1 MG IV (23:30)
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
[2021-03-21] MEDS: DOCUSATE 100 MG CAPSULE 200 MG PO (09:12)
[2021-03-21] MEDS: IBUPROFEN 600 MG TABLET PO (09:12)
[2021-03-21] MEDS: DERMOPLAST SPRAY 20% 60 ML 1 SPRAY TOP (09:42)
[2021-03-21 11:09] VITALS: BP 115/74; PULSE 74; RESP 16; TEMP 36.7
== END 2021-03-21 12:46 | disposition home or self-care (01) | DRG 807 ==
PROVIDERS: Admitting Provider Family Medicine; PCP Family Medicine; Referring Provider Family Medicine; Visit Provider Family Medicine
DX: O99.824 Streptococcus B carrier state complicating childbirth (principal); Z37.0 Single live birth; O48.0 Post-term pregnancy; Z3A.41 41 weeks gestation of pregnancy; O99.891 Other specified diseases and conditions complicating pregnancy; K52.9 Noninfective gastroenteritis and colitis, unspecified; F41.9 Anxiety disorder, unspecified; F32.9 Major depressive disorder, single episode, unspecified; O70.1 Second degree perineal laceration during delivery; O69.81X0 Labor and delivery complicated by cord around neck, without compression, not applicable or unspecified; Z20.822 Contact with and (suspected) exposure to COVID-19
CPT/HCPCS: 01967; 36415; 59050; 59410; 80076; 84550; 85014; 85018; 85025; 86850; 86900; 86901; 87635; C9803; C9113; G0379; J2270; J2405; J2540; J2590; J2765

== ENCOUNTER → 2022-03-11 10:26 | Outpatient (CLI) | payer MEDICAID, OTHER, SELFPAY ==
[2022-03-11 13:32] LABS: COVID-19 CEPHEID 4-PLEX PCR Negative (Negative); Influenza A - CEPHEID Flu A NEGATIVE (NEGATIVE); Influenza B - CEPHEID Flu B NEGATIVE (NEGATIVE); Respiratory Syncytial Virus Negative (Negative)
== END ==
PROVIDERS: PCP Family Medicine; Visit Provider Physician Assistant Medical
DX: J02.9 Acute pharyngitis, unspecified (principal)
CPT/HCPCS: 0241U; 87880

== ENCOUNTER → 2022-08-12 16:23 | Outpatient (CLI) | payer MEDICAID, OTHER, SELFPAY ==
--- NOTE | 2022-08-12 16:24 | DI.US.S_ITS ---
PROCEDURE: US PELVIC COMPLETE INDICATIONS: Chronic pelvic pain, history of endometriosis TECHNIQUE: Real-time scanning was performed of the pelvic organs, with image documentation. Additional endovaginal scanning was necessary due to incomplete visualization of the adnexal and endometrial structures by transabdominal scanning. COMPARISON: [facility], US, PELVIC COMPLETE, 12/08/2013, 15:48. FINDINGS: Uterus: Uterus is anteverted and normal in size at 8.8 x 4.2 x 5.7 cm. The myometrium is heterogeneous, with the out a defined junctional zone and with tiny internal echogenic foci. The endometrium measures 5 mm combined thickness. IUD within the endometrial cavity. Ovaries: The right ovary measures 3.0 x 1.5 x 1.8 cm, with a calculated ovarian volume of 8 cc. The left ovary measures 3.8 x 1.6 x 1.8 cm, with a calculated ovarian volume of 6 cc. The ovaries have a normal sonographic appearance. Less than 12 follicles can be seen in each ovary. No adnexal masses are seen. Other: No pathologic free abdominal or pelvic fluid. IMPRESSION: IUD appropriately positioned within the endometrial cavity. Junctional zone not well-defined, with associated T2 echogenic foci throughout the myometrium. Diffuse adenomyosis is a consideration. We strive to produce accurate, complete, and clear reports of imaging services. To assist us in improving patient care, this report was composed using standard report templates and voice recognition software. Therefore, it may contain abnormal punctuation, insertions and/or omissions. Occasional wrong-word or sound-alike substitutions may occur. Though we review the report and make efforts to correct it, we do recommend that the report be read carefully in proper context to recognize any text inaccuracies. Dictated by: Buck Cantu M.D. on 08/13/2022 at 9:41 Approved by: Buck Cantu M.D. on 08/13/2022 at 9:43
== END ==
PROVIDERS: PCP Family Medicine; Referring Provider Obstetrics & Gynecology; Visit Provider Obstetrics & Gynecology
DX: R10.2 Pelvic and perineal pain (principal); G89.29 Other chronic pain; Z87.42 Personal history of other diseases of the female genital tract; Z97.5 Presence of (intrauterine) contraceptive device
CPT/HCPCS: 76830; 76856

== ENCOUNTER → 2022-12-12 08:54 | Outpatient (CLI) | payer MEDICAID, OTHER, SELFPAY ==
--- NOTE | 2022-12-12 08:55 | DI.US.S_ITS ---
PROCEDURE: US PELVIC COMPLETE INDICATIONS: ABNORMAL VAGINAL BLEEDING TECHNIQUE: Real-time scanning was performed of the pelvic organs, with image documentation. Additional endovaginal scanning was necessary due to incomplete visualization of the adnexal and endometrial structures by transabdominal scanning. COMPARISON: [facility], US, US PELVIC COMPLETE, 08/12/2022, 16:29. FINDINGS: Uterus: Uterus is anteverted and normal in size at 9.3 x 4.5 x 5.7 cm. The myometrium is homogeneous. The endometrium measures 6.3 mm combined thickness. IUD is in appropriate position. Ovaries: The right ovary measures 1.8 x 1.8 x 2.4 cm, with a calculated ovarian volume of 3.8 cc. The left ovary is not well seen.. The visualized ovaries/adnexal regions have a normal sonographic appearance. No adnexal masses are seen. Other: No pathologic free abdominal or pelvic fluid. IMPRESSION: Unremarkable exam. Left ovary is not visualized. We strive to produce accurate, complete, and clear reports of imaging services. To assist us in improving patient care, this report was composed using standard report templates and voice recognition software. Therefore, it may contain abnormal punctuation, insertions and/or omissions. Occasional wrong-word or sound-alike substitutions may occur. Though we review the report and make efforts to correct it, we do recommend that the report be read carefully in proper context to recognize any text inaccuracies. Dictated by: Grace Logan M.D. on 12/12/2022 at 19:57 Approved by: Grace Logan M.D. on 12/12/2022 at 19:58
== END ==
PROVIDERS: Family Provider Family Medicine; PCP Family Medicine; Referring Provider Obstetrics & Gynecology; Visit Provider Obstetrics & Gynecology
DX: N93.9 Abnormal uterine and vaginal bleeding, unspecified (principal)
CPT/HCPCS: 76830; 76856; 93976

== ENCOUNTER 2023-02-02 10:30 | Outpatient (RCR) | payer MEDICAID, OTHER, SELFPAY ==
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
--- NOTE | 2022-12-01 17:01 | PT.OTN ---
Current Diagnoses Lordosis, unspecified, lumbosacral region (12/01/22) Muscle weakness (generalized) (12/01/22) Stress incontinence (female) (male) (12/01/22) Mixed incontinence (12/01/22) Cystocele, unspecified (12/01/22) Rectocele (12/01/22) Fecal smearing (12/01/22) Physical Therapy Treatment Note PT-OP-A Visit Information Start: 11/18/22 18:26 Freq: Status: Active Protocol: Document 12/01/22 12:36 LRN (Rec: 12/01/22 13:23 LRN [id number]) Out-Patient Physical Therapy Visit Information Visit Information Visit Type Treatment Note Visit Start Time 12:36 Visit Stop Time 13:14 Total Visit Minutes 38 Visit Number 05/29 Evaluation Information Evaluation Date 11/25/22 Precautions Precautions Per intake form: Depression, Back pain (bobby SIJ pain). Per pt report: Recent IBS diagnosis. PT-OP-B Current Condition Start: 11/18/22 18:26 Freq: Status: Active Protocol: Document 11/25/22 08:05 LRN (Rec: 11/25/22 08:54 LRN [id number]) Current Condition History of Current Condition Onset Date 12/02/2015 after of 2nd child Current Complaints Bladder leakage and occasional feces leakage. History of Current Condition Pt being seen for cystocele and rectocele after of 2nd child (12/02/15) and worse after of 3rd child (). Getting urinary and occasional fecal leakage. Has to wear a Heavy Poise incontinence pad. She reports pain and urinary leakage with intercourse. Prior Treatments and Tests None Developmental History Developmental History Pt has 3 children ages 13, 7, 2 yrs old. Post hemorrage with first child in 2009. Tearing of perineum with 2nd child and had episiotomy with 3rd child. All were vaginal births. Treatment Goals Patient/Caregiver Goals Pt goal: - not leak urine or feces. - Learn self care program. - decrease pain and leakage with intercourse. 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 Current Functional Impairments (Reported) Functional Limitations- ADL's Independent with ADLS. 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 PT-OP-C Subjective Start: 11/18/22 18:26 Freq: Status: Active Protocol: Document 12/01/22 12:36 LRN (Rec: 12/01/22 13:23 LRN [id number]) OP-PT Subjective Patient Comments Patient Comments Did 2 days of bladder diary. Pt has endo. After last session she bled for 1 day and had to wipe 2-3x but didn't have to change pad. States once every other month has bleeding with wiping and wears an IUD. Cramping in the lower abs is variable, triggered by IBS, endo, hormones. PT-OP-I Pelvic Floor Start: 11/18/22 18:26 Freq: Status: Active Protocol: Document 11/25/22 08:05 LRN (Rec: 11/25/22 08:54 LRN [id number]) Pelvic Floor Assessment Urine Urinary Symptoms Urge Sensation,Hesitancy, Dribbling After Urination,Pain Leakage Cause Cough,Exercise,Lifting,Sneeze, Urge Other Leakage Causes Leakage is small to large Leaks Per Day 10-14 Voiding Frequency 20 Nocturia 2 Pads Used In 24 Hours 10-14 Urine Pad Type Maxi Pad Bowel Bowel Symptoms Fecal Leakage Other Bowel Symptoms Just diagnosed with IBS Bowel Movement Frequency 2 [place] Stool Chart Comments 1-7 Pelvic Clock Pelvic Clock 6-9 Tenderness Pelvic Clock Other Inner labial and vaginal entry tissued were red and tender. Tenderness primarily at 6 O' Clock of PF. Slight clitoral nod present. Inter-Rectal Assessment No anal wink noted. Prolapse Cystocele Grade 2 Rectocele Grade 1 Perineal Descent Bearing Present Contraction Ability Manual Muscle Testing Left 0 Manual Muscle Testing Right 0 Manual Muscle Testing Anterior 0 Manual Muscle Testing Posterior 0 Muscle Endurance (Seconds) 3 Number of Quick Contractions In 10 2 Seconds Comments Pelvic Floor Comments Pt not able to perform a correct PF contraction and instead bulging was noted; therefore strength assessed as 0/5. PT-OP-J Posture/Palpation/Skin Start: 11/18/22 18:26 Freq: Status: Active Protocol: Document 11/25/22 08:05 LRN (Rec: 11/25/22 08:54 LRN [id number]) Posture Evaluation Position Standing Head/C-Spine Posture Forward Head L-Spine Posture Increased Lordosis Shoulder Posture (L) Elevated Arm Posture (L) Internally Rotated,(R) Internally Rotated Pelvis Posture Anteriorly Tilted,(R) Rotated Anterior,(L) Rotated Posterior ,(R) Iliac Crest Superior,(L) ASIS Inferior Weight Distribution Balanced Knee Posture (L) Genu Valgus,(R) Genu Valgus Comments Posture Comments Dowager's hump, flat upper T/S . PT-OP-K Range of Motion Start: 11/18/22 18:26 Freq: Status: Active Protocol: Document 11/25/22 08:05 LRN (Rec: 11/25/22 08:54 LRN [id number]) Lumbar Spine Range of Motion Lumbar Spine Active Degrees Testing Position Standing Flexion 40 Extension 10 Rotation Left 20 Rotation Right 10 Lateral Flexion Left 19 Lateral Flexion Right 13 ROM Limitations Soft Tissue Tightness,Pain Comments Flexion is 40 deg?s with 15 deg?s hip flexion, Trunk extension is 10 deg?s with 0deg?s hip extension. Hip Goniometric Range of Motion Hip Right Passive Testing Position Supine Abduction 45 Internal Rotation 30 External Rotation 60 Left Passive Abduction 50 Internal Rotation 30 External Rotation 85 PT-OP-M Strength Start: 11/18/22 18:26 Freq: Status: Active Protocol: Document 11/25/22 08:05 LRN (Rec: 11/25/22 08:54 LRN [id number]) Trunk Strength Trunk Manual Muscle Testing Core Stabilization Loss of core stabiltiy with SLR L>R. Hip Strength Hip Manual Muscle Testing Right Flexion (L2) 4 Good Extension (S1) 3 Fair Abduction 3+ Fair+ Adduction 5 Normal External Rotation 5 Normal Internal Rotation 5 Normal Left Flexion (L2) 3 Fair Extension (S1) 3 Fair Abduction 4+ Good+ Adduction 5 Normal External Rotation 3+ Fair+ Internal Rotation 3 Fair PT-OP-Q Treatments Start: 11/18/22 18:26 Freq: Status: Active Protocol: Document 12/01/22 12:36 LRN (Rec: 12/01/22 13:23 LRN [id number]) Therapeutic Exercises Supine Exercises LE Roll in/outs Supine Exercise Name LE Roll in/outs w/DB Side bilateral Reps/Minutes 8' Comments phys & v cuing to start, pt able to do the last 2 independently PF >< isolated Supine Exercise Name PF >< isolated from TA & hip AD's Reps/Minutes 6' Comments phys & v cuing Deep Breathing (DB) Supine Exercise Name Deep Breathing (DB) Reps/Minutes 2' PF contraction training Supine Exercise Name PF contraction training for drawing in of PF Reps/Minutes 23' Comments V. & phy cuing with hand on perineum, use of mirror. Self-Care/Home Management Treatment Education Other Education Pt education in core pressure management when abdomen tightens. Activities Self-Care/Home Management Activities Issued & reviewed HEP: LE Roll in/outs w/DB (until pt able to do coordinated PF contraction. PT-OP-T Assessment and Plan Start: 11/18/22 18:26 Freq: Status: Active Protocol: Document 12/01/22 12:36 LRN (Rec: 12/01/22 13:23 LRN [id number]) Physical Therapy Assessment Goals Four Impairment Bilateral SIJ pain. Impairment Bobby SIJ pain rated 3/10 Short Term Goal (STG) Pt educated in proper sitting/ standing posture. STG Duration 12/25/22 Professor Computer Science Goal (LTG) Decrease bobby SIJ pain 50% to 3 /10. LTG Duration 02/07/23 Three Impairment Posterior PF weakness with fecal leakage & rectocele Short Term Goal (STG) Pt educated in proper vulvar/ genital care. 12/01/22: Briefly discussed skin irritation with use of pads 10/11. STG Duration 12/25/22 progressed 12/01/22 Fdc Goal (LTG) Pt will be able to eliminate fecal leakage. LTG Duration 02/07/23 Two Impairment Anterior PF weakness with urinary leakage and cystocele Short Term Goal (STG) Educate pt in lifestyle changes to help combat vaginal dryness and discomfort (water -based lubricants, foreplay, regular sexual activity to improve blood flow) and possible referral for topical estrogen cream to reduce redness & irritation. STG Duration 12/25/22 Professor Computer Science Goal (LTG) Decrease pain with nighttime activity with pt able to attempt intercourse without fear of pain, and improve anterior PF strength to eliminate urinary leakage with sit to stand and minimize leakage with coughing or sneezing. LTG Duration 02/07/23 One Impairment Pt lacks appropriate self care HEP Short Term Goal (STG) Education in proper methods for transfer with coordination of breathing, PF contractions . 12/01/22: Educated pt in transfer w/breathing coordination. Held PF contractions due to poor coordination of PF contraction with drawing inward. STG Duration 12/25/22 progressed 12/01/22 Professor Computer Science Goal (LTG) Pt will be independent with a self care HEP of PF/core strengthening and hip ROM (Bobby IR, R ER) exercises. 12/01/22: HEP: LE roll in/ outs and PF tightening in isolation of substitute ms. LTG Duration 02/07/23 progressed 12/01/22 Assessment Summary Assessment Pt able to partly contract PF pulling up/in with use of mirror. Pt thinks she feels it contraction when not looking at times. Pt needs much reminding and training for decreasing intraabdominal pressure with transfers and PF contractions. Physical Therapy Plan Frequency and Duration Frequency of Treatment 1x/Week Duration of treatment (weeks) 10 Plan of Care Start Date 11/25/22 Plan of Care End Date 02/07/23 Next Visit Focus/Plan Next Note Type Treatment Note Next Visit Plan Pt to complete Pain Diagram. Review Bladder dairy and discuss as needed fluid intake (AM/PM), bowel movement frequency, & nighttime voiding frequency, food and fluid intake. Review breath with transfers and LE roll in/out ex and Proper Kegels for pulling up/in vs out, . Education in core/canister pressures and strategies to decrease PF pressures with coughing, and self care methods for having BM's without valsa maneuver. Biofeedback when pt able to perform a contraction Quick Flick and Long Hold muscles. Manual: Correct R anter rot/L posterior rot innominate & Sacral Balancing. Check for DR Motley Education in PF strengthening Exer: R Fig 4 stretches, Bobby hip IR, hamstring/LE neural stretch. Strengthening PF/core (proper TA) & hip as needed.
--- NOTE | 2022-12-04 10:12 | PT-OP ANOTE ---
Msg left on phone requesting clarification of discharge from therapy as message received 11/17/22. If pt has concerns regarding discharge it was requested that she notify PT by end of day or she will be discharged from therapy. Phone number of clinic given.
--- NOTE | 2023-01-12 10:47 | PT-OP ANOTE ---
Pt called and message left notifying pt of missed appt and of her next appt time/date. Reminded pt of DNS/CX policy and requested call back if seh wanted to give reason for missed appt.
--- NOTE | 2023-01-26 11:00 | PT-OP ANOTE ---
Pt called and notified of missed appointment. Pt informed of next visit date and time. Noted [facility] policy of DNS/CX policy and possible charge. Recommended pt call to cancel if she is not able to attend therapy.
--- NOTE | 2023-02-12 10:24 | PT-OP ANOTE ---
left requesting call back regarding pt's last appt scheduled 02/16/23, after her POC expiration on 02/07/23. Notified that she will be discharged from therapy if pt not call back by tomorrow end of day.
--- NOTE | 2023-02-12 10:40 | PT.OPDS ---
Current Diagnoses Lordosis, unspecified, lumbosacral region (02/02/23) Muscle weakness (generalized) (02/02/23) Stress incontinence (female) (male) (02/02/23) Mixed incontinence (02/02/23) Cystocele, unspecified (02/02/23) Rectocele (02/02/23) Fecal smearing (02/02/23) Visit Care Team Role Provider Type Haile Rosales MD Family Provider Physician Primary Care Provider Specialty: Family Practice Address: [address] [place] [address], [id number] Email: [email or web address] Russ Booker MD Attending Provider Physician Referring Provider Specialty: RELIGIOUS ACTIVITIES DIRECTOR Address: [address] [place] [address], [address] [place] [address], [id number] Email: [email or web address] Visit Number Visit Number 06/26 Discharge Summary PT-OP-B Current Condition Start: 11/18/22 18:26 Freq: Status: Active Protocol: Document 11/25/22 08:05 LRN (Rec: 11/25/22 08:54 LRN [id number]) Current Condition History of Current Condition Onset Date 12/02/2015 after of 2nd child Current Complaints Bladder leakage and occasional feces leakage. History of Current Condition Pt being seen for cystocele and rectocele after of 2nd child (12/02/15) and worse after of 3rd child (). Getting urinary and occasional fecal leakage. Has to wear a Heavy Poise incontinence pad. She reports pain and urinary leakage with intercourse. Prior Treatments and Tests None Developmental History Developmental History Pt has 3 children ages 13, 7, 2 yrs old. Post hemorrage with first child in 2009. Tearing of perineum with 2nd child and had episiotomy with 3rd child. All were vaginal births. Treatment Goals Patient/Caregiver Goals Pt goal: - not leak urine or feces. - Learn self care program. - decrease pain and leakage with intercourse. 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 Current Functional Impairments (Reported) Functional Limitations- ADL's Independent with ADLS. 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 PT-OP-C Subjective Start: 11/18/22 18:26 Freq: Status: Active Protocol: Document 02/12/23 10:33 LRN (Rec: 02/12/23 10:40 LRN [id number]) OP-PT Subjective Patient Comments Patient Comments Per phone conversation, the pt states she has a lot going on in her family life and would like to do the rehab, but thinks it would be better to wait until after the new year to return for her therapy. Pt agreeable to DC from PT at this time. PT-OP-I Pelvic Floor Start: 11/18/22 18:26 Freq: Status: Active Protocol: Document 02/02/23 10:34 LRN (Rec: 02/02/23 11:34 LRN [id number]) Pelvic Floor Assessment SEMG (uV) Baseline 5.2 Recruitment Pattern Good Relaxation Poor/Slow Holding Fair Stability of Hold Fair SEMG Stability of Rest Fair Comments Pelvic Floor Comments Pt supine with legs on bolster , legs uncrossed, arms by sides. PT-OP-J Posture/Palpation/Skin Start: 11/18/22 18:26 Freq: Status: Active Protocol: Document 11/25/22 08:05 LRN (Rec: 11/25/22 08:54 LRN [id number]) Posture Evaluation Position Standing Head/C-Spine Posture Forward Head L-Spine Posture Increased Lordosis Shoulder Posture (L) Elevated Arm Posture (L) Internally Rotated,(R) Internally Rotated Pelvis Posture Anteriorly Tilted,(R) Rotated Anterior,(L) Rotated Posterior ,(R) Iliac Crest Superior,(L) ASIS Inferior Weight Distribution Balanced Knee Posture (L) Genu Valgus,(R) Genu Valgus Comments Posture Comments Dowager's hump, flat upper T/S . PT-OP-K Range of Motion Start: 11/18/22 18:26 Freq: Status: Active Protocol: Document 11/25/22 08:05 LRN (Rec: 11/25/22 08:54 LRN [id number]) Lumbar Spine Range of Motion Lumbar Spine Active Degrees Testing Position Standing Flexion 40 Extension 10 Rotation Left 20 Rotation Right 10 Lateral Flexion Left 19 Lateral Flexion Right 13 ROM Limitations Soft Tissue Tightness,Pain Comments Flexion is 40 deg?s with 15 deg?s hip flexion, Trunk extension is 10 deg?s with 0deg?s hip extension. Hip Goniometric Range of Motion Hip Right Passive Testing Position Supine Abduction 45 Internal Rotation 30 External Rotation 60 Left Passive Abduction 50 Internal Rotation 30 External Rotation 85 PT-OP-M Strength Start: 11/18/22 18:26 Freq: Status: Active Protocol: Document 11/25/22 08:05 LRN (Rec: 11/25/22 08:54 LRN [id number]) Trunk Strength Trunk Manual Muscle Testing Core Stabilization Loss of core stabiltiy with SLR L>R. Hip Strength Hip Manual Muscle Testing Right Flexion (L2) 4 Good Extension (S1) 3 Fair Abduction 3+ Fair+ Adduction 5 Normal External Rotation 5 Normal Internal Rotation 5 Normal Left Flexion (L2) 3 Fair Extension (S1) 3 Fair Abduction 4+ Good+ Adduction 5 Normal External Rotation 3+ Fair+ Internal Rotation 3 Fair PT-OP-T Assessment and Plan Start: 11/18/22 18:26 Freq: Status: Active Protocol: Document 02/12/23 10:33 LRN (Rec: 02/12/23 10:40 LRN [id number]) Physical Therapy Assessment Goals Four Impairment Bilateral SIJ pain. Impairment Beatrice SIJ pain rated 3/10 Short Term Goal (STG) Pt educated in proper sitting/ standing posture. STG Duration 12/25/22 Orthotist Goal (LTG) Decrease beatrice SIJ pain 50% to 3 /10. LTG Duration 02/07/23 Three Impairment Posterior PF weakness with fecal leakage & rectocele Short Term Goal (STG) Pt educated in proper vulvar/ genital care. 12/01/22: Briefly discussed skin irritation with use of pads 10/11. STG Duration 12/25/22 progressed 12/01/22 Orthotist Goal (LTG) Pt will be able to eliminate fecal leakage. LTG Duration 02/07/23 Two Impairment Anterior PF weakness with urinary leakage and cystocele Short Term Goal (STG) Educate pt in lifestyle changes to help combat vaginal dryness and discomfort (water -based lubricants, foreplay, regular sexual activity to improve blood flow) and possible referral for topical estrogen cream to reduce redness & irritation. STG Duration 12/25/22 Orthotist Goal (LTG) Decrease pain with nighttime activity with pt able to attempt intercourse without fear of pain, and improve anterior PF strength to eliminate urinary leakage with sit to stand and minimize leakage with coughing or sneezing. LTG Duration 02/07/23 Assessment Summary Assessment Pt is a 37 yo female who presented with mixed urinary incontinence, occasional fecal leakage/smearing, postural changes, bilateral SIJ pain and poor coordination of PF muscle contractions. She had avisible cystocele and to a lesser extent rectocele. The pt has only 2 of 8 therapy visits due to different family reasons. The pt is now past her plan of care date. The pt is under a lot of stress and after discussion feels she should wait until after the new year to return to PT and understands she will need a new referral to return. The pt is being discharged from PT in pt agreement for lack of attendance. Physical Therapy Plan Discharge Physical Therapy Discharge Reasons No Longer Attending PT Discharge Comments In agreement with pt, she is being discharged from therapy with a plan to request a new PT referral in the new year. Thank you for your referral.
== END 2023-02-13 11:10 | disposition home or self-care (01) ==
LOC: PHYS 10:30
PROVIDERS: Family Provider Family Medicine; PCP Family Medicine; Referring Provider Obstetrics & Gynecology; Visit Provider Obstetrics & Gynecology
DX: N39.46 Mixed incontinence (principal); N81.10 Cystocele, unspecified; N81.6 Rectocele; M62.81 Muscle weakness (generalized); M40.57 Lordosis, unspecified, lumbosacral region; R15.1 Fecal smearing
CPT/HCPCS: 97110; 97162; 97535

== ENCOUNTER → 2023-06-04 10:56 | Outpatient (CLI) | payer MEDICAID, OTHER, SELFPAY ==
--- NOTE | 2023-06-04 10:58 | DI.RAD.S_ITS ---
Bone Density Report Name: YULIANA KHAN Age: 38 Sex: Female Ethnicity: White Date of : 1985 Indication: Referring Provider: BREA RIOS Study: Bone densitometry was performed. Exam Date: June 04, 2023 Accession number: [id number] Bone Density: Region BMD T-score Z-score Classification AP Spine(L1-L4) 1.050 0.1 Femoral Neck (Left) 0.912 0.8 Total Hip (Left) 1.063 1.1 Femoral Neck (Right) 0.920 0.8 Total Hip (Right) 1.092 1.3 Total Hip Mean 1.077 1.2 World Health Organization criteria for BMD impression classify patients as: Normal (T-score at or above -1.0), Osteopenia (T-score between -1.0 and -2.5), or Osteoporosis (T-score at or below -2.5). 10-year Fracture Risk: FRAX not reported because: Premenopausal woman Impression: The patient's bone mass is within expected range for age, gender and ethnicity. Discussion: BONE DENSITY IS WITHIN EXPECTED LIMITS FOR AGE, SEX AND RACE. Bone density is within expected limits for age, sex and race at all sites measured. The patient should follow a healthful lifestyle (good nutrition with adequate calcium and vitamin D, and appropriate weight-bearing exercise). Follow-Up: Consider repeating this study in 5 years or sooner if there is some new clinical indication. Reported by: RUKHSANA MORGAN M.D. on 06/04/2023 11:12:00 AM.
== END ==
PROVIDERS: Family Provider Family Medicine; PCP Family Medicine; Referring Provider Obstetrics & Gynecology; Visit Provider Obstetrics & Gynecology
DX: Z13.820 Encounter for screening for osteoporosis (principal)
CPT/HCPCS: 77080